=== PATIENT | male | born 2000 | race Caucasian/White ===

== ENCOUNTER 2020-06-21 09:16 | Emergency (ER) | payer OTHER ==
[~2020-06-21] VITALS: Ht 182.9 cm; Wt 76.0 kg
--- NOTE | 2020-06-21 09:33 | NUR ---
Pt brought back form triage with chief complaint of facial numbness and general weak feeling since taking 1200 mg of magnesium last night.
[2020-06-21] MEDS ORDERED: LORazepam 1MG TABLET ONE (09:50)
[2020-06-21] MEDS ORDERED: LORazepam 1MG TABLET PO ONE (10:00)
[2020-06-21 10:12] LABS: BASOPHILS # (AUTO) 0.02 x10^3/uL (0-0.3); BASOPHILS % (AUTO) 0 % (0-1); EOSINOPHILS # (AUTO) 0.08 x10^3/uL (0-0.8); EOSINOPHILS % (AUTO) 1 % (1-7); LYMPHOCYTES # (AUTO) 1.85 x10^3/uL (1-6.1); LYMPHOCYTES % (AUTO) 34 % (22-44); MD NO; MEAN CORPUSCULAR HEMOGLOBIN 29.6 pg (27.5-34.5); MEAN CORPUSCULAR HGB CONC 32.9 g/dL (33.2-36.2); MEAN PLATELET VOLUME 9.9 fL (7.4-10.4); MONOCYTES # (AUTO) 0.34 x10^3/uL (0-1.4); MONOCYTES % (AUTO) 6 % (2-9); NEUTROPHILS # (AUTO) 3.12 x10^3/uL (1.8-8.0); NEUTROPHILS % (AUTO) 58 % (42-75); PLATELET COUNT 175 x10^3/uL (130-400); RED BLOOD COUNT 5.33 x10^6/uL (4.38-5.82)
[2020-06-21 10:21] LABS: ALANINE AMINOTRANSFERASE 26 U/L (12-78); ALBUMIN 4.1 g/dL (3.4-5.0); ANION GAP 5 mmol/L (5-15); CALCIUM 8.8 mg/dL (8.5-10.1); CHLORIDE 108 mmol/L (98-107); CREATININE 1.21 mg/dL (0.7-1.3)
[2020-06-21 10:24] LABS: ALKALINE PHOSPHATASE 79 U/L (45-117); BILIRUBIN,TOTAL 0.5 mg/dL (0.2-1.0); TOTAL PROTEIN 7.2 g/dL (6.4-8.2)
--- NOTE | 2020-06-21 10:25 | NUR ---
Pt resting in bed, call light in reach.
[2020-06-21 10:37] VITALS: BP 136/62
--- NOTE | 2020-06-21 10:37 | NUR ---
PATIENT RESTING IN GURNEY, CONNECTED TO VITALS MACHINE, NO SIGNS OF ACUTE DISTRESS, DENIES PAIN, CALL LIGHT WITHIN REACH.
--- NOTE | 2020-06-21 10:51 | NUR ---
Report to Alyce BRUMFIELD
--- NOTE | 2020-06-21 10:51 | NUR ---
RECEIVED REPORT FROM JIM BRUMFIELD. ASSUMING CARE AT THIS TIME. TASK RN PLACED PIV, IVF STARTED. PT GOING TO CT.
[2020-06-21] MEDS ORDERED: SODIUM CHLORIDE FLUSH 10ML SYR IVF ONE (11:00)
[2020-06-21] MEDS ORDERED: SODIUM CHLORIDE 0.9% 1,000ML IVBOLUS ONE (11:00)
[2020-06-21] MEDS ORDERED: OMNIPAQUE 350 MG/ML, 75ML BOTTLE ONE (11:06)
--- NOTE | 2020-06-21 11:17 | NUR ---
ALL RESULTS ARE BACK AT THIS TIME. CHART UP FOR RECHECK.
== END 2020-06-21 11:31 | disposition home or self-care (01) ==
LOC: ED 10:45
DX: F43.0 Acute stress reaction (principal); F41.9 Anxiety disorder, unspecified; R06.02 Shortness of breath
CPT/HCPCS: 36415; 71275; 80053; 83735; 85025; 85379; 93005; 96360; 99285; J7030; Q9967